=== PATIENT | male | born 1975 | race Caucasian/White ===

== ENCOUNTER 2022-05-25 21:02 | Emergency (ER) | payer OTHER ==
[~2022-05-25] VITALS: Ht 182.9 cm; Wt 129.0 kg
[2022-05-25] MEDS ORDERED: NS 1,000 ML IV ONE (21:30)
[2022-05-25 21:49] LABS: BASO # 0.1 10^3/uL (0.0-0.2); BASO % 0.6 % (0.0-1.0); EOS # 0.1 10^3/uL (0.0-0.5); EOS % 1.7 % (0.0-3.0); HEMATOCRIT 45.8 % (42.0-52.0); HEMOGLOBIN 15.9 g/dl (13.5-17.5); LYMPH # 2.9 10^3/uL (1.5-5.0); LYMPH % 34.7 % (24.0-44.0); MEAN CORPUSCULAR HEMOGLOBIN 30.3 pg (27.0-33.0); MEAN CORPUSCULAR HGB CONC 34.7 g/dl (32.0-36.5); MEAN CORPUSCULAR VOLUME 87.4 fl (80.0-96.0); MONO # 0.7 10^3/uL (0.0-0.8); MONO % 7.9 % (2.0-8.0); NEUTROPHILS # 4.5 10^3/uL (1.5-8.5); NEUTROPHILS % 54.5 % (36.0-66.0); PLATELET COUNT, AUTOMATED 228 10^3/uL (150-450); RED BLOOD COUNT 5.24 10^6/uL (4.30-6.10); WHITE BLOOD COUNT 8.3 10^3/uL (4.0-10.0)
[2022-05-25 21:50] LABS: VENOUS BASE EXCESS -0.7 (-2.0-2.0); VENOUS HCO3 25.3 MEQ/L (23.0-27.0); VENOUS O2 SATURATION 87.2 % (60.0-80.0); VENOUS PARTIAL PRESSURE CO2 46.6 mmHg (38.0-50.0); VENOUS PARTIAL PRESSURE O2 53.5 mmHg (30.0-50.0); VENOUS PH 7.353 UNITS (7.330-7.430); VENOUS STANDARD HCO3 23.6 MEQ/L; VENOUS TOTAL CO2 26.8 MEQ/L (24.0-28.0)
[2022-05-25 22:00] VITALS: BP 123/73
[2022-05-25 22:24] LABS: HEMOGLOBIN A1c 13.1 % (4.0-6.0)
[2022-05-25 22:27] LABS: BILIRUBIN,DIRECT 0.2 MG/DL (<0.4); BILIRUBIN,TOTAL 0.5 MG/DL (0.3-1.2); TOTAL PROTEIN 6.9 G/DL (5.7-8.2)
[2022-05-25 22:37] LABS: RSV AMPLIFICATION NEGATIVE (NEGATIVE)
[2022-05-26 00:24] LABS: ACETONE/KETONE 0.6 MMOL/L (0.02-0.27); MAGNESIUM LEVEL 1.9 MG/DL (1.8-2.4)
== END 2022-05-26 00:27 | disposition home or self-care (01) ==
LOC: M ED 21:02
DX: E11.65 Type 2 diabetes mellitus with hyperglycemia (principal)